=== PATIENT | male | born 1990 | race Caucasian/White ===

== ENCOUNTER 2017-06-26 18:56 | Emergency (ER) | payer SELFPAY ==
[2017-06-26 19:15] VITALS: TEMP 97.9; BMI 27.1
--- NOTE | 2017-06-26 19:58 | PDOC ---
Attending Attestation - Resident Resident Name: RahulErlin - ED Attending Attestation I have performed the following: I have examined & evaluated the patient, The case was reviewed & discussed with the resident, I agree w/resident's findings & plan, Exceptions are as noted <Usman Hammond - Last Filed: 06/26/17 19:58> - Resident Resident Name: Erlin Kay - ED Attending Attestation I have performed the following: I have examined & evaluated the patient, The case was reviewed & discussed with the resident, I agree w/resident's findings & plan - HPI HPI: The patient is a 27 yo M with a past medical history of emote appendectomy presents with RLQ pain. The patient states the pain is dull with no modifying facts. The patient also notes a cut on his hand from 5 days ago that he has yet to take antibiotics for. - Physicial Exam PE: GENERAL: Awake, alert, and fully oriented, in no acute distress HEAD: No signs of trauma EYES: PERRLA, EOMI, sclera anicteric, conjunctiva clear ENT: Auricles normal inspection, hearing grossly normal, nares patent, oropharynx clear without exudates. Moist mucosa NECK: Normal ROM, supple, no lymphadenopathy, JVD, or masses LUNGS: Breath sounds equal, clear to auscultation bilaterally. No wheezes, and no crackles HEART: Regular rate and rhythm, normal S1 and S2, no murmurs, rubs or gallops ABDOMEN: Soft, nontender, normoactive bowel sounds. No guarding, no rebound. No masses EXTREMITIES: Normal range of motion, no edema. No clubbing or cyanosis. No cords, erythema, or tenderness NEUROLOGICAL: Cranial nerves II through XII grossly intact. Normal speech, gait not assessed. SKIN: Warm, Dry, normal turgor, no rashes or lesions noted. - Medical Decision Making Documentation prepared by Renay Bruno, acting as medical technologist blood bank for Usman Hammond MD/DO. <Renay Bruno - Last Filed: 06/26/17 21:38>
--- NOTE | 2017-06-26 20:12 | PDOC ---
History of Present Illness - General Chief Complaint: Pain Stated Complaint: SIDE PAIN Time Seen by Provider: 06/26/17 19:56 - History of Present Illness Initial Comments: 06/26/17 21:10 27M with pmh of remote appendectomy presents with persistent mild pain 6/10 on LRQ dull, unchanged. Patient also has cut on left wrist since Monday that is infected but hasn't started taking his prescribed antibiotics for it yet. 06/26/17 21:14 Past History - Past Medical History Allergies/Adverse Reactions: Allergies Allergy/AdvReac Type Severity Reaction Status Date / Time No Known Allergies Allergy Verified 06/26/17 19:13 Home Medications: Ambulatory Orders Ibuprofen [Motrin -] 400 mg PO PRN PRN #10 tablet 06/26/17 - Surgical History Appendectomy: Yes - Psycho/Social/Smoking Cessation Hx Suicidal Ideation: No Smoking History: Never smoked Review of Systems - Review of Systems Constitutional: No: Symptoms Reported HEENTM: No: Symptoms Reported Respiratory: No: Symptoms reported Cardiac (ROS): No: Symptoms Reported ABD/GI: Yes: See HPI : No: Symptoms Reported Musculoskeletal: No: Symptoms Reported Integumentary: Yes: See HPI Neurological: No: Symptoms reported *Physical Exam - Vital Signs Last Vital Signs Temp Pulse Resp BP Pulse Ox 97.9 F 57 L 18 134/81 100 06/26/17 19:14 06/26/17 19:14 06/26/17 19:14 06/26/17 19:14 06/26/17 19:14 - Physical Exam General Appearance: Yes: Nourished, Appropriately Dressed. No: Apparent Distress HEENT: positive: EOMI, MAYO Neck: positive: Trachea midline. negative: Tender Respiratory/Chest: positive: Lungs Clear, Normal Breath Sounds. negative: Chest Tender Cardiovascular: positive: Regular Rhythm, Regular Rate, S1, S2 Gastrointestinal/Abdominal: positive: Normal Bowel Sounds, Flat, Soft. negative : Tender Extremity: positive: Normal Capillary Refill Integumentary: positive: Normal Color, Dry, Warm Neurologic: positive: cotton cleaner II-XII NML intact, Fully Oriented, Alert, Normal Mood/ Affect ED Treatment Course - LABORATORY CBC & Chemistry Diagram: 06/26/17 20:25 06/26/17 20:25 Medical Decision Making - Medical Decision Making 06/26/17 21:15 27M with pmh of appendectomy presents with LRQ pain. UA shows rare calcium oxalate, 1+ blood and WBC with few bacteria and mnucus. PAtient evaluated for renal stone with spiral ct. CT showed two punctate stones with possible recent passage of one stone. PAtietn d/c with motrin rx and referal to 06/26/17 23:18 06/26/17 23:22 *DC/Admit/Observation/Transfer Diagnosis at time of Disposition: Calcium oxalate calculus - Discharge Dispostion Disposition: HOME Admit: No - Prescriptions Prescriptions: Ibuprofen [Motrin -] 400 mg PO PRN PRN #10 tablet PRN Reason: Pain - Referrals Referrals: Azeem Bartholomew MD [Staff Physician] -
[2017-06-26 20:39] LABS: BASOPHIL 0.3 % (0-2.0); EOSINOPHIL 1.7 % (0-4.5); MCH 28.8 pg (25.7-33.7); MCHC 35.3 g/dl (32.0-35.9); MEAN CELL VOLUME 81.5 fl (80-96); MEAN PLT VOLUME 9.5 fl (7.5-11.1); PLATELET COUNT 199 K/MM3 (134-434); RDW 12.6 % (11.9-15.9); WHITE BLOOD COUNT 7.6 K/mm3 (4.0-10.0)
[2017-06-26 20:41] LABS: URINE APPEARANCE SLCLOUDY; URINE BILIRUBIN NEGATIVE (NEGATIVE); URINE BLOOD 1+ (NEGATIVE); URINE COLOR YELLOW; URINE GLUCOSE (UA) NEGATIVE (NEGATIVE); URINE KETONE NEGATIVE (NEGATIVE); URINE LEUK ESTERASE NEGATIVE (NEGATIVE); URINE NITRITE NEGATIVE (NEGATIVE); URINE PROTEIN NEGATIVE (NEGATIVE); URINE UROBILINOGEN NEGATIVE mg/dL (0.2-1.0)
[2017-06-26 21:13] LABS: CALCIUM OXALATE CRYSTALS RARE /hpf (NONE SEEN); URINE BACTERIA FEW /hpf (NONE SEEN); URINE MUCUS RARE; URINE RBC 4 /hpf (0-3); URINE WBC 1 /hpf (3-5)
[2017-06-26] MEDS ORDERED: ACETAMINOPHEN 500 MG TABLET (FP) PO ONE (21:16)
[2017-06-26 21:17] LABS: ALBUMIN 4.3 g/dl (3.4-5.0); ANION GAP 7 (8-16); BILIRUBIN,TOTAL 0.3 mg/dL (0.2-1.0); CALCIUM 9.6 mg/dL (8.5-10.1); CO2 28 mmol/L (21-32); CREATININE 0.7 mg/dL (0.7-1.3); GLUCOSE,RANDOM 94 mg/dL (74-106); SGOT/AST 19 U/L (15-37); SGPT/ALT 45 U/L (12-78); TOT PROT 7.9 g/dl (6.4-8.2)
[2017-06-26 21:18] LABS: ALK PHOS 126 U/L (45-117)
[2017-06-26] MEDS ORDERED: ACETAMINOPHEN 325 MG TABLET (FP) ONE (21:21)
[2017-06-26 23:26] VITALS: BP 138/70; PULSE 64
== END 2017-06-26 23:26 | disposition home or self-care (01) ==
LOC: JER 18:56
DX: N20.9 Urinary calculus, unspecified (principal)
CPT/HCPCS: 36415; 74176; 80053; 81003; 81015; 85025; 99282-25

== ENCOUNTER 2017-06-29 19:43 | Emergency (ER) | payer SELFPAY ==
[2017-06-29 19:57] VITALS: BP 147/81; PULSE 71; TEMP 98; BMI 25.7
[2017-06-29] MEDS ORDERED: DIPHTH,PERTUSS(ACELL),TET 0.5 ML DISP.SYRIN IM ONE (20:05)
[2017-06-29] MEDS ORDERED: IBUPROFEN 400 MG TABLET (FP) PO ONE ×2 (20:07→20:14)
--- NOTE | 2017-06-29 20:08 | PDOC ---
History of Present Illness - General Chief Complaint: Puncture Wound Stated Complaint: FOOT INJURY Time Seen by Provider: 06/29/17 20:02 History Source: Patient - History of Present Illness Occurred: reports: this evening Severity: Yes: moderate Lower Extremity Pain Location: left: foot Past History - Past Medical History Allergies/Adverse Reactions: Allergies Allergy/AdvReac Type Severity Reaction Status Date / Time Penicillins Allergy Verified 06/29/17 19:57 Home Medications: Ambulatory Orders Ibuprofen [Motrin -] 400 mg PO PRN PRN #10 tablet 06/26/17 Ciprofloxacin HCl [Cipro] 500 mg PO BID #9 tablet 06/29/17 - Surgical History Appendectomy: Yes - Psycho/Social/Smoking Cessation Hx Suicidal Ideation: No Smoking History: Never smoked Have you smoked in the past 12 months: No Information on smoking cessation initiated: No Hx Alcohol Use: No Drug/Substance Use Hx: No Review of Systems - Review of Systems Constitutional: No: Chills, Fever *Physical Exam - Vital Signs Last Vital Signs Temp Pulse Resp BP Pulse Ox 98.0 F 71 18 147/81 100 06/29/17 19:53 06/29/17 19:53 06/29/17 19:53 06/29/17 19:53 06/29/17 19:53 - Physical Exam General Appearance: Yes: Appropriately Dressed. No: Apparent Distress HEENT: positive: Normal Voice Neck: positive: Supple Respiratory/Chest: negative: Respiratory Distress Extremity: positive: Other (puncture wound to ball of L foot, no fb on papation , no erythema or discharge) ED Treatment Course - RADIOLOGY Radiology Studies Ordered: Category Date Time Status FOOT-LEFT [RAD] Stat Radiology 06/29/17 20:05 Ordered Medical Decision Making - Medical Decision Making 06/29/17 20:06 27 yo male, no sig hx, p/w puncture wound to L foot after stepping on 3 inch nail at work this evening. States nail went through his sneakers. No fb sensation, f/c See exam Puncture wound to foot -tetanus -XR r/o fb -local wound care in ED -dc w/ abx and wound check 06/29/17 20:13 06/29/17 20:43 XR neg for fb. Pt discharged w/ abx and wound check as needed in 48 hrs *DC/Admit/Observation/Transfer Diagnosis at time of Disposition: Puncture wound - Discharge Dispostion Disposition: HOME Condition at time of disposition: Good - Prescriptions Prescriptions: Ciprofloxacin HCl [Cipro] 500 mg PO BID #9 tablet - Patient Instructions Printed Discharge Instructions: DI for Puncture Wound Additional Instructions: Take antibiotics as directed and return to ED for wound check in 48 hrs as needed
[2017-06-29] MEDS ORDERED: CIPROFLOXACIN 500 MG TABLET (RESTRICTED TO ID) PO ONE (20:12)
== END 2017-06-29 20:47 | disposition home or self-care (01) ==
LOC: JERFT 19:43
PROC: 3E0234Z Introduction of Serum, Toxoid and Vaccine into Muscle, Percutaneous Approach (ICD-10-PCS; principal; 2017-06-29)
DX: S91.332A Puncture wound without foreign body, left foot, initial encounter (principal); W45.0XXA Nail entering through skin, initial encounter; Y93.89 Activity, other specified; Y92.9 Unspecified place or not applicable
CPT/HCPCS: 73630-TC-LT; 90715; 99281-25

== ENCOUNTER 2019-01-05 17:23 | Emergency (ER) | payer OTHER ==
[2019-01-05 17:36] VITALS: BP 155/81; PULSE 74; TEMP 97.9; BMI 25.1
--- NOTE | 2019-01-05 21:13 | PDOC ---
History of Present Illness - General Chief Complaint: Shortness of Breath Stated Complaint: SOB Time Seen by Provider: 01/05/19 17:45 History Source: Patient Exam Limitations: No Limitations Past History - Past Medical History Allergies/Adverse Reactions: Allergies Allergy/AdvReac Type Severity Reaction Status Date / Time Penicillins Allergy Verified 01/05/19 17:36 Home Medications: Ambulatory Orders NK [No Known Home Medication] 07/03/18 COPD: No DVT: No Dementia: No - Surgical History Appendectomy: Yes - Immunization History Immunization Up to Date: Yes - Suicide/Smoking/Psychosocial Hx Smoking History: Former smoker Have you smoked in the past 12 months: Yes Number of Cigarettes Smoked Daily: 1 If you are a former smoker, when did you quit?: 6 months Information on smoking cessation initiated: No Hx Alcohol Use: No Drug/Substance Use Hx: No Substance Use Type: None *Physical Exam - Vital Signs Last Vital Signs Temp Pulse Resp BP Pulse Ox 97.9 F 74 20 155/81 98 01/05/19 17:34 01/05/19 17:34 01/05/19 17:34 01/05/19 17:34 01/05/19 17:34 - Physical Exam General Appearance: No: Apparent Distress Respiratory/Chest: positive: Lungs Clear, Normal Breath Sounds. negative: Respiratory Distress Cardiovascular: positive: Regular Rhythm, Regular Rate, S1, S2. negative: Murmur Gastrointestinal/Abdominal: positive: Normal Bowel Sounds, Soft. negative: Tender, Distended, Guarding, Rebound Extremity: positive: Normal Inspection. negative: Pedal Edema, Calf Tenderness Integumentary: positive: Normal Color Moderate Sedation - Procedure Monitoring Vital Signs: Procedure Monitoring Vital Signs Temperature 97.9 F 01/05/19 17:34 Pulse Rate 74 01/05/19 17:34 Respiratory Rate 20 01/05/19 17:34 Blood Pressure 155/81 01/05/19 17:34 O2 Sat by Pulse Oximetry (%) 98 01/05/19 17:34 ED Treatment Course - ADDITIONAL ORDERS Additional order review: Laboratory Results 01/05/19 19:39 POC Glucometer 135 01/05/19 19:39 POC Glucometer 135 - RADIOLOGY Radiology Studies Ordered: Category Date Time Status CHEST PA & LAT [RAD] Stat Radiology 01/05/19 20:19 Taken Medical Decision Making - Medical Decision Making 28 y/o M with no sig pmh, former smoker (smoked 1 year, 1-2 cigs/day, quit 6 months ago) mentions feeling SOB x 3 days, particularly when he eats sweet foods. Mentions 5-6 days ago, he had some L sided chest pressure but then subsided then and has not recurred since. Symptoms are not exertional. Has only noticed it when he eats sweet foods and not other types of foods. Denies drug use, recent travel, fever, URI sxs, cough, abd pain, n/v, dizziness, palpitations. EKG: NSR at 77 bpm, no ST-T changes Will get CXR (consider ?spontaneous PTX) 01/05/19 21:12 CXR wet read negative Patient denies any complaints Repeat BP was 128/64 Stable for dc 01/05/19 21:56 *DC/Admit/Observation/Transfer Diagnosis at time of Disposition: Shortness of breath - Discharge Dispostion Disposition: HOME Condition at time of disposition: Stable Decision to Admit order: No - Referrals Referrals: Ed Barragan MD [Staff Physician] - 2 Days - Patient Instructions Printed Discharge Instructions: DI for Shortness of Breath Additional Instructions: Thank you for choosing [facility]. It was a pleasure taking care of you. Your chest x-ray was normal here Please follow-up with PCP for further evaluation Return to the Emergency Department if your symptoms worsen or persist or have other concerning symptoms. - Post Discharge Activity
--- NOTE | 2019-01-06 22:12 | EKG ---
Test Reason : Blood Pressure : / mmHG Vent. Rate : 077 BPM Atrial Rate : 077 BPM P-R Int : 146 ms QRS Dur : 102 ms QT Int : 378 ms P-R-T Axes : 051 056 063 degrees QTc Int : 427 ms NORMAL SINUS RHYTHM NORMAL ECG NO PREVIOUS ECGS AVAILABLE Confirmed by AVERY RENAE MD ([id number]) on 01/06/2019 10:11:34 PM Referred By: Confirmed By:AVERY RENAE MD
== END 2019-01-05 22:30 | disposition home or self-care (01) ==
LOC: JER 17:23 → JERFT 17:23 → JER 22:30
DX: R06.02 Shortness of breath (principal); Z87.891 Personal history of nicotine dependence
CPT/HCPCS: 71046-TC-FY; 82962; 93005; 93010; 99281-25

== ENCOUNTER 2019-01-29 21:21 | Emergency (ER) | payer OTHER ==
[2019-01-29 21:53] VITALS: BP 128/78; PULSE 65; TEMP 97; BMI 26.4
--- NOTE | 2019-01-29 21:54 | PDOC ---
Rapid Medical Evaluation Chief Complaint: Shortness of Breath Medical Evaluation: Allergies Allergy/AdvReac Type Severity Reaction Status Date / Time Penicillins Allergy Verified 01/05/19 17:36 I have performed a brief in-person evaluation of this patient. The patient presents with a chief complaint of: c/o SOB x 1 month; seen in ED last month for similar complaint; states when followed up with doctor, was told it was likely anxiety and was told to get further testing done, but states did not have time to get those testings done; denies cp, abd pain; currently feels fine Pertinent physical exam findings: In NAD, lungs clear I have ordered the following: nothing The patient will proceed to the ED for further evaluation. 01/29/19 21:51
--- NOTE | 2019-01-29 23:59 | PDOC ---
History of Present Illness - General History Source: Patient Exam Limitations: No Limitations - History of Present Illness Initial Comments: 01/29/19 23:59 The patient is a 28 year old male with no past medical history who presents to the emergency department for evaluation of shortness of breath. 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 He endorses associated dizziness prior to the episode of shortness of breath. Patient states he was seen in the emergency department last month for a similar episode while he was in a restaurant after which he was told by providers that the episode could have been related to anxiety. Denies chest pain, headache, fevers, chills, nausea, vomiting, history of asthma , diarrhea, and constipation. Denies eating new food, recent travel, or prolonged period of immobility. Allergies: Penicillin Social History: Prior cigarette smoking reported, quit 4-5 months ago, began at age 14. No reported alcohol or drug use. Surgical History: Appendectomy PCP: None. <Ko Burnett - Last Filed: 01/29/19 23:59> <Hien Guerrero - Last Filed: 01/30/19 02:30> - General Chief Complaint: Psychiatric Stated Complaint: SOB Time Seen by Provider: 01/29/19 21:51 Past History <Ko Burnett - Last Filed: 01/29/19 23:59> - Past Medical History COPD: No DVT: No Dementia: No - Surgical History Appendectomy: Yes - Immunization History Immunization Up to Date: Yes - Suicide/Smoking/Psychosocial Hx Smoking History: Never smoked Have you smoked in the past 12 months: No Number of Cigarettes Smoked Daily: 1 If you are a former smoker, when did you quit?: 6 months Information on smoking cessation initiated: No Hx Alcohol Use: No Drug/Substance Use Hx: No Substance Use Type: None <Hien Guerrero - Last Filed: 01/30/19 02:30> - Past Medical History Allergies/Adverse Reactions: Allergies Allergy/AdvReac Type Severity Reaction Status Date / Time Penicillins Allergy Verified 01/29/19 21:53 Home Medications: Ambulatory Orders NK [No Known Home Medication] 07/03/18 Review of Systems - Review of Systems Able to Perform ROS?: Yes Comments:: 01/30/19 00:00 CONSTITUTIONAL: Absent: fever, chills, diaphoresis, generalized weakness, malaise, loss of appetite HEENT: Absent: rhinorrhea, nasal congestion, throat pain, throat swelling, difficulty swallowing, mouth swelling, ear pain, eye pain, visual Changes CARDIOVASCULAR: (+)dizziness. (+)chest tightness. Absent: chest pain, syncope, palpitations, irregular heart rate, peripheral edema RESPIRATORY: (+)shortness of breath. Absent: cough, dyspnea with exertion, orthopnea, wheezing, stridor, hemoptysis GASTROINTESTINAL: Absent: abdominal pain, abdominal distension, nausea, vomiting, diarrhea, constipation, melena, hematochezia GENITOURINARY: Absent: dysuria, frequency, urgency, hesitancy, hematuria, flank pain, genital pain MUSCULOSKELETAL: Absent: myalgia, arthralgia, joint swelling SKIN: Absent: rash, itching, pallor HEMATOLOGIC/IMMUNOLOGIC: Absent: easy bleeding, easy bruising, lymphadenopathy, frequent infections ENDOCRINE: Absent: unexplained weight gain, unexplained weight loss, heat intolerance, cold intolerance NEUROLOGIC: Absent: headache, focal weakness or paresthesias, dizziness, unsteady gait, seizure, mental status changes, bladder or bowel incontinence PSYCHIATRIC: Absent: anxiety, depression, suicidal or homicidal ideation, hallucinations. <Ko Burnett - Last Filed: 01/29/19 23:59> *Physical Exam - Vital Signs Last Vital Signs Temp Pulse Resp BP Pulse Ox 97.0 F L 65 16 128/78 100 01/29/19 21:50 01/29/19 21:50 01/29/19 21:50 01/29/19 21:50 01/29/19 21:50 - Physical Exam Comments: 01/30/19 00:00 GENERAL: Well developed, well nourished. Awake and alert. No acute distress. HEENT: Normocephalic, atraumatic. PERRLA, EOMI. No conjunctival pallor. Sclera are non- icteric. Moist mucous membranes. Oropharynx is clear. NECK: Supple. Full ROM. No JVD. Carotid pulses 2+ and symmetric, without bruits. No thyromegaly. No lymphadenopathy. CARDIOVASCULAR: Regular rate and rhythm. No murmurs, rubs, or gallops. Distal pulses are 2+ and symmetric. PULMONARY: No evidence of respiratory distress. Lungs clear to auscultation bilaterally. No wheezing, rales or rhonchi. ABDOMINAL: Soft. Non-tender. Non-distended. No rebound or guarding. No organomegaly. Normoactive bowel sounds. MUSCULOSKELETAL Normal range of motion at all joints. No bony deformities or tenderness. No CVA tenderness. EXTREMITIES: No cyanosis. No clubbing. No edema. No calf tenderness. SKIN: Warm and dry. Normal capillary refill. No rashes. No jaundice. NEUROLOGICAL: Alert, awake, appropriate. Cranial nerves 2-12 intact. No deficits to light touch and temperature in face, upper extremities and lower extremities. No motor deficits in the in face, upper extremities and lower extremities. Normoreflexic in the upper and lower extremities. Normal speech. Toes are down- going bilaterally. Gait is normal without ataxia. PSYCHIATRIC: Cooperative. Good eye contact. Appropriate mood and affect. <Ko Burnett - Last Filed: 01/29/19 23:59> - Vital Signs Last Vital Signs Temp Pulse Resp BP Pulse Ox 97.0 F L 65 16 128/78 100 01/29/19 21:50 01/29/19 21:50 01/29/19 21:50 01/29/19 21:50 01/29/19 21:50 <Hien Guerrero - Last Filed: 01/30/19 02:30> Moderate Sedation - Procedure Monitoring Vital Signs: Procedure Monitoring Vital Signs Temperature 97.0 F L 01/29/19 21:50 Pulse Rate 65 01/29/19 21:50 Respiratory Rate 16 01/29/19 21:50 Blood Pressure 128/78 01/29/19 21:50 O2 Sat by Pulse Oximetry (%) 100 01/29/19 21:50 <Ko Burnett - Last Filed: 01/29/19 23:59> - Procedure Monitoring Vital Signs: Procedure Monitoring Vital Signs Temperature 97.0 F L 01/29/19 21:50 Pulse Rate 65 01/29/19 21:50 Respiratory Rate 16 01/29/19 21:50 Blood Pressure 128/78 01/29/19 21:50 O2 Sat by Pulse Oximetry (%) 100 01/29/19 21:50 <Hien Guerrero - Last Filed: 01/30/19 02:30> *DC/Admit/Observation/Transfer - Attestations Scribe Attestion: 01/30/19 00:00 Documentation prepared by Ko Burnett, acting as medical billing coder for Hien Guerrero MD. <Ko Burnett - Last Filed: 01/29/19 23:59> <Hien Guerrero - Last Filed: 01/30/19 02:30> Diagnosis at time of Disposition: Shortness of breath - Discharge Dispostion Disposition: HOME Condition at time of disposition: Stable - Referrals Referrals: Haider Meraz MD [Staff Physician] - - Patient Instructions Printed Discharge Instructions: DI for Shortness of Breath Additional Instructions: please followup with your doctor Follow up with a natural resources extension educator for further evaluation You may like to go to our medical clinic at [address] [place] [address] [facility], [place] [phone]
--- NOTE | 2019-01-30 12:09 | EKG ---
Test Reason : Blood Pressure : / mmHG Vent. Rate : 056 BPM Atrial Rate : 056 BPM P-R Int : 174 ms QRS Dur : 098 ms QT Int : 434 ms P-R-T Axes : 047 036 041 degrees QTc Int : 418 ms SINUS BRADYCARDIA OTHERWISE NORMAL ECG WHEN COMPARED WITH ECG OF 05-JAN-2019 17:32, NO SIGNIFICANT CHANGE WAS FOUND Confirmed by KENA HAYES MD ([id number]) on 01/30/2019 12:09:12 PM Referred By: Confirmed By:KENA HAYES MD
== END 2019-01-30 02:53 | disposition home or self-care (01) ==
LOC: JER 21:21
DX: R06.02 Shortness of breath (principal)
CPT/HCPCS: 36415; 84484; 93005; 93010; 99281-25

== ENCOUNTER 2020-06-21 07:09 | Emergency (ER) | payer OTHER ==
[2020-06-21 07:33] VITALS: TEMP 98; BMI 27.8
[2020-06-21] MEDS ORDERED: predniSONE 20 MG TABLET (UD) PO ONE (08:18)
[2020-06-21] MEDS ORDERED: predniSONE 20 MG TABLET (UD) ONE (08:29)
--- NOTE | 2020-06-21 08:30 | PDOC ---
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 States started on his arm and then spread to his neck and eyes. Reports itching and burning at site of rash. No changes in vision. No pain with eye movement. Has not tried anything at home for pain. - Physicial Exam PE: 06/21/20 08:24 General: non-toxic appearing HEENT: mildly injected conjunctiva, EOMI, visual acuity grossly intact Skin: erythematous weeping rash in flexor surface of RUE near ac, erythematous dermatitis near neck and anterior chest - Medical Decision Making 06/21/20 08:30 30 yo M with likely poison phillip/contact dermatitis from working outside, given e xtent of rash and area with weeping and surrounding cellulitis will also cover with abx for concern for bacterial superinfection. Plan: -steroids -abx -d/c with return precautions and rx for clinda and steroids, recommend PMD f/u This clinical encounter is taking place during a federal and state health care emergency attributable to the novel Sanders Virus pandemic. The Nurse Case Manager of the Department of Health and Human Services has declared, pursuant to the Public Health Service Act 319F-3 (42 U.S.C. 247d-6d), that a covered persons activities related to medical countermeasures against COVID-19 will be immune from liability under Federal and State law. Discharge - Discharge Information Problems reviewed: Yes Clinical Impression/Diagnosis: Poison phillip dermatitis - Follow up/Referral - Patient Discharge Instructions - Post Discharge Activity
--- NOTE | 2020-06-21 08:38 | PDOC ---
History of Present Illness - General Chief Complaint: Rash Stated Complaint: POISON GUALBERTO Time Seen by Provider: 06/21/20 07:53 - History of Present Illness Initial Comments: 06/21/20 08:35 30yo M w/ no PMH p/w rash after cutting a tree on Monday (2days ago). He states there were julio cesar that wrapped around the tree and came into contact with him. He identified poison gualberto on a picture of different plants from the same class as the one with which he came into contact. He describes burning around the periphery of the rashes with intense itching in their centers. He says it is spreading and thinks it is because he is scratching himself. Denies fever, SOB, CP. denies taking medicine. Denies PMH except anxiety. Past History - Medical History Allergies/Adverse Reactions: Allergies Allergy/AdvReac Type Severity Reaction Status Date / Time Penicillins Allergy Verified 06/21/20 07:33 Home Medications: Ambulatory Orders Clindamycin [Cleocin -] 450 mg PO TID #30 capsule 06/21/20 predniSONE [Deltasone -] 20 mg PO ASDIR #42 tablet 06/21/20 COPD: No DVT: No Dementia: No - Surgical History Appendectomy: Yes - Immunization History Immunization Up to Date: Yes - Psycho-Social/Smoking History Smoking History: Never smoked Have you smoked in the past 12 months: No Number of Cigarettes Smoked Daily: 1 If you are a former smoker, when did you quit?: 6 months - Substance Abuse Hx (Audit-C & DAST Scrn) How often the patient has a drink containing alcohol: 2-4 times / month Score: In Men: 4 or > Positive; In Women: 3 or > Positive: 2 Screen Result (Pos requires Nsg. Audit-10AR): Negative Review of Systems - Review of Systems Able to Perform ROS?: Yes Is the patient limited Lithuanian proficient: No Constitutional: No: Chills, Diaphoresis, Fever HEENTM: Yes: Eye Pain. No: Blurred Vision, Recent change in vision Respiratory: No: Cough, Shortness of Breath, SOB at Rest Cardiac (ROS): No: Chest Pain, Edema, Palpitations, Syncope ABD/GI: No: Abdominal Distended, Poor Appetite, Vomiting : No: Burning, Dysuria Musculoskeletal: No: Back Pain, Joint Pain, Joint Swelling, Muscle Pain, Muscle Weakness Integumentary: Yes: Change in Color, Erythema, Lesions, Pruritus, Rash Neurological: No: Headache, Numbness, Seizure Psychiatric: Yes: Anxiety Endocrine: No: Excessive Sweating, Flushing *Physical Exam - Vital Signs Last Vital Signs Temp Pulse Resp BP Pulse Ox 98 F 67 18 134/73 100 06/21/20 07:28 06/21/20 07:28 06/21/20 07:28 06/21/20 07:28 06/21/20 07:28 - Physical Exam General Appearance: Yes: Nourished, Appropriately Dressed HEENT: positive: EOMI, MAYO, Normal Voice. negative: Muffled/Hoarse voice Neck: positive: Supple Respiratory/Chest: positive: Lungs Clear, Normal Breath Sounds Cardiovascular: positive: Regular Rhythm, Regular Rate Gastrointestinal/Abdominal: positive: Normal Bowel Sounds, Soft Musculoskeletal: positive: Normal Inspection. negative: CVA Tenderness, Decreased Range of Motion Extremity: positive: Normal Capillary Refill, Normal Inspection, Inflammation Integumentary: positive: Rash, Swelling Neurologic: positive: Fully Oriented, Alert, Normal Mood/Affect ED Treatment Course - Medications Given in the ED: ED Medications Discontinued Medications Generic Name Dose Route Start Last Admin Trade Name Germanq PRN Reason Stop Dose Admin Prednisone 60 mg 06/21/20 08:18 06/21/20 08:31 Deltasone - PO 06/21/20 08:19 60 mg ONCE ONE Administration Discharge - Discharge Information Problems reviewed: Yes Clinical Impression/Diagnosis: Poison gualberto dermatitis Condition: Stable Disposition: HOME - Admission No - Additional Discharge Information Prescriptions: Clindamycin [Cleocin -] 450 mg PO TID #30 capsule predniSONE [Deltasone -] 20 mg PO ASDIR #42 tablet - Follow up/Referral - Patient Discharge Instructions Patient Printed Discharge Instructions: DI for Cellulitis -- Adult, DI for Poison Gualberto Allergy, Probiotics May Decrease Intensity and Duration of Diarrhea Due to Infection Additional Instructions: You came to the emergency department with a rash after working with trees/shrubbery. We examined you and decided to give you antibiotics for the lesion on the elbow fold of your right arm. We also decided to give you a three-week course of steroids due to the severity of your rash. 1. Antibiotics - clindamycin - please take 3pills, 3x/day x 10days. Finish this entire course even if you feel better. You may buy probiotics from a health-food store/organic store/vitamin shop because antibiotics can cause an upset stomach. 2. Steroids - Prednisone - take 3pills/day for the 1st week. take 2pills per day for the 2nd week. take 1 pill per day for the 3rd week. Steroids make increase your appetite and make you feel more energetic. Because of this take them in the morning. 3. Itching - you may buy calamine lotion over the counter. Spread this on the rash generously. You may also take benadryl (1-2 pills per day). This will not help with the rash but will help you sleep so you don't scratch. Wash everything. Your clothes, sheets, clean your car steering wheel. Cut your nails as short as you can tolerate without discomfort. Come back to the ER if any of the symptoms you feel get more severe, or if you develop fever, shortness of breath, or chest pain. Please follow up with your primary doctor within five days of this ER visit. - Post Discharge Activity
[2020-06-21 09:22] VITALS: BP 132/77; PULSE 79
== END 2020-06-21 09:22 | disposition home or self-care (01) ==
LOC: JER 07:09
DX: L23.7 Allergic contact dermatitis due to plants, except food (principal)
CPT/HCPCS: 99283-25

== ENCOUNTER 2021-06-18 14:50 | Emergency (ER) | payer OTHER ==
[2021-06-18 15:16] VITALS: BP 126/78; PULSE 84; TEMP 98.4; BMI 30.7
[2021-06-18] MEDS ORDERED: ACETAMINOPHEN/CAFFEINE/BUTALBITAL 1 TAB PO ONE (15:29)
== END 2021-06-18 16:32 | disposition home or self-care (01) ==
LOC: JER 14:50
DX: J02.9 Acute pharyngitis, unspecified (principal); R51.9 Headache, unspecified; Z11.52 Encounter for screening for COVID-19
CPT/HCPCS: 99283-25; C9803; U0003; U0005

== ENCOUNTER 2021-11-08 19:40 | Emergency (ER) | payer OTHER ==
[2021-11-08 20:15] VITALS: BP 127/83; PULSE 89; TEMP 98.6; BMI 30.7
[2021-11-08] MEDS ORDERED: FAMOTIDINE 20 MG TABLET PO ONE (21:12)
[2021-11-08] MEDS ORDERED: MAG HYDROX/AL HYDROX/SIMETH 30 ML UNIT-DOSE CUP PO ONE (21:12)
[2021-11-08] MEDS ORDERED: ONDANSETRON *ODT* 4 MG TABLET SL ONE (21:12)
[2021-11-08] MEDS ORDERED: MAG HYDROX/AL HYDROX/SIMETH 30 ML UNIT-DOSE CUP ONE (21:17)
[2021-11-08] MEDS ORDERED: FAMOTIDINE 20 MG TABLET ONE (21:17)
[2021-11-08] MEDS ORDERED: ONDANSETRON *ODT* 4 MG TABLET ONE (21:17)
== END 2021-11-08 21:34 | disposition home or self-care (01) ==
LOC: JERFT 19:40
DX: K52.9 Noninfective gastroenteritis and colitis, unspecified (principal)
CPT/HCPCS: 99283-25; Q0162

== ENCOUNTER 2022-04-08 18:49 | Emergency (ER) | payer OTHER ==
[2022-04-08 18:59] VITALS: BP 127/80; PULSE 85; TEMP 98.2; BMI 30.7
[2022-04-08] MEDS ORDERED: KETOROLAC TROMETHAMINE 30 MG/1 ML VIAL ONE (19:49)
[2022-04-08] MEDS ORDERED: KETOROLAC TROMETHAMINE 30 MG/1 ML VIAL IM ONE (19:49)
== END 2022-04-08 19:52 | disposition home or self-care (01) ==
LOC: JERFT 18:49
PROC: 3E023GC Introduction of Other Therapeutic Substance into Muscle, Percutaneous Approach (ICD-10-PCS; principal; 2022-04-08)
DX: S99.922A Unspecified injury of left foot, initial encounter (principal); W22.8XXA Striking against or struck by other objects, initial encounter
CPT/HCPCS: 73630-TC-LT; 99284-25

== ENCOUNTER 2023-01-12 11:43 | Emergency (ER) | payer OTHER ==
[2023-01-12 11:56] VITALS: BP 131/61; PULSE 60; RESP 17; TEMP 97.9; BMI 30.7
[2023-01-12] MEDS ORDERED: DIPHTH,PERTUSS(ACELL),TET 0.5 ML DISP.SYRIN IM ONE ×2 (13:00→13:08)
[2023-01-12] MEDS ORDERED: CEPHALEXIN MONOHYDRATE 500 MG CAPSULE (UD) PO ONE (13:12)
[2023-01-12] MEDS ORDERED: CEPHALEXIN MONOHYDRATE 500 MG CAPSULE (UD) ONE (13:13)
[2023-01-12] MEDS ORDERED: BACITRACIN ZINC 15 GM TUBE TOPICAL OINTMENT ONE (13:34)
== END 2023-01-12 13:40 | disposition home or self-care (01) ==
LOC: JERFT 11:43
PROC: 3E0234Z Introduction of Serum, Toxoid and Vaccine into Muscle, Percutaneous Approach (ICD-10-PCS; principal; 2023-01-12)
DX: S61.235A Puncture wound without foreign body of left ring finger without damage to nail, initial encounter (principal); W29.4XXA Contact with nail gun, initial encounter
CPT/HCPCS: 73140-TC-LT-FY; 90471; 90715; 99284-25

== ENCOUNTER 2023-10-23 04:20 | Emergency (ER) | payer OTHER ==
[2023-10-23 04:28] VITALS: BP 126/77; RESP 20; TEMP 100.2; BMI 33.5
[2023-10-23] MEDS ORDERED: DEXAMETHASONE 4 MG TABLET (FP) PO ONE (04:49)
[2023-10-23] MEDS ORDERED: DEXAMETHASONE 4 MG TABLET (FP) ONE (04:53)
[2023-10-23] MEDS ORDERED: ACETAMINOPHEN 500 MG TABLET (FP) PO ONE (05:16)
[2023-10-23 06:52] VITALS: PULSE 90
== END 2023-10-23 07:04 | disposition home or self-care (01) ==
LOC: JER 04:20
DX: R53.1 Weakness (principal); R53.83 Other fatigue; R05.9 Cough, unspecified; R51.9 Headache, unspecified; M79.10 Myalgia, unspecified site; R61 Generalized hyperhidrosis; J10.1 Influenza due to other identified influenza virus with other respiratory manifestations; R50.9 Fever, unspecified; R06.02 Shortness of breath; R00.0 Tachycardia, unspecified; Z20.822 Contact with and (suspected) exposure to COVID-19
CPT/HCPCS: 0241U-QW; 71046-TC-FY; 93005; 93010; 99285-25